=== PATIENT | male | born 1945 | race Caucasian/White ===

== ENCOUNTER 2024-07-07 09:35 | Observation (INO) ==
[2024-07-07 10:08] LABS: ABS Basophils 0.1 10^3/uL (0.0-0.1); ABS Eosinophils 0.3 10^3/uL (0.0-0.5); ABS Lymphocytes 1.2 10^3/uL (1.0-4.8); ABS Monocytes 0.4 10^3/uL (0.0-1.1); Eosinophil % 3.8 %; Hematocrit 46.3 % (38-53); Hemoglobin 15.7 g/dL (13.2-16.3); Mean Corpuscular Hemoglobin 33.3 pg (27-33); Mean Corpuscular Hgb Conc 33.9 g/dL (31-36); Mean Corpuscular Volume 98.3 fL (80-97); Mean Platelet Volume 8.4 fL (7.5-11.2); Platelet Count 185 10^3/uL (150-450); Red Blood Count 4.71 10^6/uL (4.06-5.63); Red Cell Distribution Width 15.9 % (12-17)
[2024-07-07 10:33] LABS: Activated Partial Thrombo Time 33.7 seconds (26.0-38.0); INR 1.5 (0.85-1.14)
[2024-07-07 10:47] LABS: Albumin/Globulin Ratio 1.4 (1-3); Calcium 9.2 mg/dL (8.6-10.3); Creatinine, Serum 1.31 mg/dL (0.67-1.17); Globulin 2.8 g/dL (2-4); HDL Cholesterol 28.4 mg/dL; Potassium 4.4 mmol/L (3.5-5.0); Total Bilirubin 0.6 mg/dL (0.2-1.0); Total Protein 6.8 g/dL (6.4-8.9); eGFR CKD-EPI 55.4 (>60)
[2024-07-07 11:23] LABS: High Sensitivity Troponin 1 Hr 7 pg/mL (<20)
[2024-07-07] MEDS ORDERED: Sulfur Hexaflouride MICROSPHR 25 MG VIAL IV PRN (11:34)
[2024-07-07 12:32] LABS: Urine Appearance Clear; Urine Bilirubin Negative (Negative); Urine Blood Negative (Negative); Urine Color Light-Yellow; Urine Glucose 4+ (>=1000 mg/dL) (Negative); Urine Ketones Negative (Negative); Urine Nitrite Negative (Negative); Urine Protein Negative (Negative); Urine Urobilinogen Negative (Negative); Urine pH 5.5 (5.0-8.0)
[2024-07-08 05:58] LABS: Hematocrit 45.8 % (38-53); Hemoglobin 15.4 g/dL (13.2-16.3); Mean Corpuscular Hemoglobin 32.8 pg (27-33); Mean Corpuscular Hgb Conc 33.7 g/dL (31-36); Mean Corpuscular Volume 97.5 fL (80-97); Mean Platelet Volume 8.5 fL (7.5-11.2); Platelet Count 178 10^3/uL (150-450); White Blood Count 9.8 10^3/uL (3.6-10.2)
[2024-07-08 06:10] LABS: Calcium 9.5 mg/dL (8.6-10.3); Creatinine, Serum 1.05 mg/dL (0.67-1.17); Potassium 4.5 mmol/L (3.5-5.0); eGFR CKD-EPI 72.2 (>60)
[2024-07-08] MEDS ORDERED: Dextrose 50% Syringe 50 ml 25 GM/50 ML SYRINGE IV PUSH PRN (09:03)
[2024-07-08] MEDS: Sulfamethox/Trimethoprim DS TAB 800/160 mg PO SCH (09:40)
[2024-07-08] MEDS: Iodixanol (CONTRAST) 320 MG/ML 100 ML SDV IV ONE (17:15)
[2024-07-09 07:38] LABS: Calcium 9.3 mg/dL (8.6-10.3); Creatinine, Serum 1.14 mg/dL (0.67-1.17); Magnesium 1.7 mg/dL (1.9-2.7); Potassium 4.5 mmol/L (3.5-5.0); eGFR CKD-EPI 65.4 (>60)
[2024-07-09] MEDS: Magnesium Sulfate 2 gm BAG 2 GM/50 ML BAG IVPB ONE (10:27)
[2024-07-09 15:01] VITALS: BP 106/74
== END 2024-07-09 17:50 | disposition home or self-care (01) ==
LOC: ED 09:35 → EDHOLD 09:35 → SUATTDRO 11:34 → MED 20:12
PROVIDERS: ADMIT Student in an Organized Health Care Education/Training Program; ATTEND Hospitalist

== ENCOUNTER 2024-08-07 10:26 | Observation (INO) ==
[2024-08-07 11:03] LABS: ABS Basophils 0.1 10^3/uL (0.0-0.1); ABS Eosinophils 0.3 10^3/uL (0.0-0.5); ABS Lymphocytes 1.5 10^3/uL (1.0-4.8); ABS Monocytes 0.6 10^3/uL (0.0-1.1); ABS Neutrophils 6.8 10^3/uL (1.5-7.6); ABS Nucleated RBC 0.01 10^3/ul; Eosinophil % 2.7 %; Hematocrit 46.8 % (38-53); Hemoglobin 15.7 g/dL (13.2-16.3); Lymphocyte % 16.4 %; Mean Corpuscular Hemoglobin 33.2 pg (27-33); Mean Corpuscular Hgb Conc 33.6 g/dL (31-36); Mean Corpuscular Volume 98.7 fL (80-97); Mean Platelet Volume 8.5 fL (7.5-11.2); Nucleated Red Blood Cells % 0.1 %/100WBC (0.0-0.8); Platelet Count 158 10^3/uL (150-450); Red Blood Count 4.74 10^6/uL (4.06-5.63); Red Cell Distribution Width 15.8 % (12-17); White Blood Count 9.3 10^3/uL (3.6-10.2)
[2024-08-07] MEDS: Lactated Ringers 1000 ml BAG 1,000 ML IV ONE (11:03)
[2024-08-07 11:16] LABS: INR 1.62 (0.85-1.14)
[2024-08-07 11:28] LABS: High Sens Troponin Baseline 8 pg/mL (<20)
[2024-08-07 12:05] LABS: ALT 29 U/L (7-52); Albumin 3.8 g/dL (3.2-5.2); Albumin/Globulin Ratio 1.3 (1-3); Alkaline Phosphatase 75 U/L (35-149); Anion Gap 10 mmol/L (2-16); Blood Urea Nitrogen 17 mg/dL (6-24); CO2 Carbon Dioxide 23 mmol/L (22-32); Calcium 8.9 mg/dL (8.6-10.3); Chloride 104 mmol/L (101-111); Creatinine, Serum 1.47 mg/dL (0.67-1.17); Globulin 2.9 g/dL (2-4); Glucose 228 mg/dL (70-100); Sodium 137 mmol/L (135-145); Total Bilirubin 0.7 mg/dL (0.2-1.0); Total Protein 6.7 g/dL (6.4-8.9); eGFR CKD-EPI 48.2 (>60)
[2024-08-07 13:17] LABS: Magnesium 1.9 mg/dL (1.9-2.7); Potassium Redraw 6.1 mmol/L (3.5-5.0)
[2024-08-07 14:24] LABS: Calcium 9.2 mg/dL (8.6-10.3); Creatinine, Serum 1.47 mg/dL (0.67-1.17); eGFR CKD-EPI 48.2 (>60)
[2024-08-07] MEDS: NS 0.9% 500 ml BAG 500 ML IV ONE (15:15)
[2024-08-08] MEDS ORDERED: Albuterol/Ipratropium NEB.SOL (2.5/0.5 MG) 3 ML NEB.SOLN INH PRN (00:24)
[2024-08-08] MEDS: methylPREDNISolone SOD SUCC 40 mg/ml 1 ml VIAL IV SCH (05:08)
[2024-08-08] MEDS: Sulfamethox/Trimethoprim DS TAB 800/160 mg PO SCH (08:48)
[2024-08-08] MEDS: Cholecalciferol (VIT D3) 1,000 unit TAB PO SCH (09:42)
[2024-08-08 10:44] LABS: ABS Lymphocytes 0.6 10^3/uL (1.0-4.8); ABS Monocytes 0.1 10^3/uL (0.0-1.1); ABS Neutrophils 9.4 10^3/uL (1.5-7.6); Eosinophil % 0.2 %; Hematocrit 46.5 % (38-53); Hemoglobin 15.9 g/dL (13.2-16.3); Lymphocyte % 5.7 %; Mean Corpuscular Hemoglobin 33.6 pg (27-33); Mean Corpuscular Hgb Conc 34.1 g/dL (31-36); Mean Corpuscular Volume 98.6 fL (80-97); Mean Platelet Volume 8.8 fL (7.5-11.2); Platelet Count 167 10^3/uL (150-450); Red Blood Count 4.71 10^6/uL (4.06-5.63); Red Cell Distribution Width 15.8 % (12-17); White Blood Count 10.1 10^3/uL (3.6-10.2)
[2024-08-08 11:36] LABS: Calcium 9.3 mg/dL (8.6-10.3); Creatinine, Serum 1.29 mg/dL (0.67-1.17); Magnesium 1.7 mg/dL (1.9-2.7); Phosphorus 3.4 mg/dL (2.5-5.0); eGFR CKD-EPI 56.4 (>60)
[2024-08-08] MEDS: Polyethylene Glycol 3350 17 GM PACKET PO PRN (12:36)
[2024-08-08 17:54] VITALS: BP 112/74
== END 2024-08-08 18:28 | disposition home or self-care (01) ==
LOC: ED 10:26 → EDHOLD 10:26 → MEDTELE 22:49
PROVIDERS: ADMIT Internal Medicine; ATTEND Family Medicine